=== PATIENT | male | born 1940 | race Caucasian/White ===

== ENCOUNTER 2017-03-27 13:42 | Emergency (ER) | payer MEDICARE, MEDICAID ==
[~2017-03-27] VITALS: Ht 182.9 cm; Wt 86.0 kg
[2017-03-27 15:14] LABS: BASOPHILS % (AUTO) 0.5 % (0.0-2.0); HEMATOCRIT 50.2 % (41-53); HEMOGLOBIN 16.9 g/dL (13.5-17.5); LYMPHOCYTES # (AUTO) 1.5 K/uL (1.0-4.8); LYMPHOCYTES % (AUTO) 18.3 % (22.0-44.0); MEAN CORPUSCULAR HEMOGLOBIN 31.7 pg (26.0-34.0); MEAN CORPUSCULAR HGB CONC 33.6 G/dL (31.0-37.0); MEAN CORPUSCULAR VOLUME 94 fL (80-100); MONOCYTES # (AUTO) 0.6 K/uL (0.1-1.0); MONOCYTES % (AUTO) 6.9 % (2.0-9.0); NEUTROPHILS % (AUTO) 71.3 % (40.0-70.0); PLATELET COUNT (AUTO) 140 K/uL (150-450); RED BLOOD CELL COUNT(AUTO) 5.32 MIL/uL (4.50-5.90); RED CELL DISTRIBUTION WIDTH 13.3 % (11.5-14.5); WHITE BLOOD COUNT (AUTO) 8.4 K/uL (4.5-11.0)
[2017-03-27 15:19] LABS: ANION GAP 6 mmol/L (8-16); CALCIUM, TOTAL 9.1 mg/dL (8.8-10.5); CARBON DIOXIDE 31 mmol/L (22-29); CHLORIDE 107 mmol/L (98-107); CREATININE 1.23 mg/dL (0.60-1.30); GLOMERULAR FILTR. RATE CALC 58 mL/min (>60); POTASSIUM 4.2 mmol/L (3.5-5.1); SODIUM SERUM 144 mmol/L (136-145); UREA NITROGEN, BLOOD 29 mg/dL (7-18)
[2017-03-27 15:26] LABS: ALANINE AMINOTRANSFERASE 21 U/L (12-78); ALBUMIN 3.4 g/dL (3.4-5.0); ASPARTATE AMINOTRANSFERASE 10 U/L (15-37); BILIRUBIN,TOTAL 0.4 mg/dL (0.1-1.0); TOTAL PROTEIN, SERUM 6.6 g/dL (6.4-8.2)
[2017-03-27 15:45] LABS: B-TYPE NATRIURETIC PEPTIDE < 5 pg/mL (0-100)
[2017-03-27] MEDS ORDERED: DiphenhydrAMINE HCL 50 MG/ML VIAL IM ONE (16:00)
[2017-03-27] MEDS ORDERED: LORazepam 2 MG/ML VIAL IM ONE (16:00)
[2017-03-27] MEDS ORDERED: HALOPERIDOL LACTATE 5 MG/ML VIAL IM ONE (16:00)
[2017-03-27 17:58] LABS: APPEARANCE,URINE CLEAR (CLEAR); GLUCOSE, URINE (UA) NEGATIVE (NEGATIVE); KETONES,URINE NEGATIVE (NEGATIVE); LEUKOCYTE ESTERASE ,URINE NEGATIVE (NEGATIVE); OCCULT BLOOD,URINE NEGATIVE (NEGATIVE); PH,URINE 5.5 (5.0-8.0); PROTEIN,URINE NEGATIVE (NEGATIVE)
[2017-03-27 18:00] LABS: ADD UA MICROSCOPIC NO
[2017-03-27 18:50] VITALS: BP 140/90
== END 2017-03-27 19:10 | disposition home or self-care (01) ==
LOC: EMS 13:45
DX: R42 Dizziness and giddiness (principal); R53.1 Weakness; F03.90 Unspecified dementia, unspecified severity, without behavioral disturbance, psychotic disturbance, mood disturbance, and anxiety
CPT/HCPCS: 93005; 99285

== ENCOUNTER 2017-04-20 10:01 | Emergency (ER) | payer MEDICARE, OTHER ==
[~2017-04-20] VITALS: Ht 185.4 cm; Wt 79.5 kg
[2017-04-20] MEDS ORDERED: METO-323 PO (10:26)
[2017-04-20] MEDS ORDERED: SIMV5TAB6 PO (10:26)
[2017-04-20] MEDS ORDERED: LOSA25TA21 PO (10:26)
[2017-04-20] MEDS ORDERED: DOCU100C19 PO (10:26)
[2017-04-20] MEDS ORDERED: DONE5TAB PO (10:26)
[2017-04-20] MEDS ORDERED: TRAZ-144 PO (10:26)
[2017-04-20] MEDS ORDERED: MEMA5 PO (10:26)
[2017-04-20] MEDS ORDERED: DIVA125T PO (10:26)
[2017-04-20] MEDS ORDERED: ALPR0.5T8 PO (10:26)
[2017-04-20 10:30] LABS: BASOPHILS # (AUTO) 0.03 K/uL (0.00-0.20); BASOPHILS % (AUTO) 0.3 % (0.0-2.0); EOSINOPHILS # (AUTO) 0.18 K/uL (0.00-0.70); EOSINOPHILS % (AUTO) 2.03 % (1.0-6.0); HEMATOCRIT 45.1 % (41-53); HEMOGLOBIN 15.3 g/dL (13.5-17.5); LYMPHOCYTES # (AUTO) 1.2 K/uL (1.0-4.8); LYMPHOCYTES % (AUTO) 14.2 % (22.0-44.0); MEAN CORPUSCULAR HEMOGLOBIN 32.1 pg (26.0-34.0); MEAN CORPUSCULAR VOLUME 94 fL (80-100); MONOCYTES # (AUTO) 0.5 K/uL (0.1-1.0); MONOCYTES % (AUTO) 5.3 % (2.0-9.0); NEUTROPHILS # (AUTO) 6.8 K/uL (1.8-7.7); NEUTROPHILS % (AUTO) 78.2 % (40.0-70.0); PLATELET COUNT (AUTO) 114 K/uL (150-450); RED BLOOD CELL COUNT(AUTO) 4.78 MIL/uL (4.50-5.90); RED CELL DISTRIBUTION WIDTH 12.9 % (11.5-14.5); WHITE BLOOD COUNT (AUTO) 8.7 K/uL (4.5-11.0)
[2017-04-20 10:41] LABS: ANION GAP 6 mmol/L (8-16); CALCIUM, TOTAL 8.6 mg/dL (8.8-10.5); CARBON DIOXIDE 29 mmol/L (22-29); CHLORIDE 109 mmol/L (98-107); CREATININE 1.02 mg/dL (0.60-1.30); GLOMERULAR FILTR. RATE CALC > 60 mL/min (>60); INR 1.1 (0.9-1.1); POTASSIUM 4.1 mmol/L (3.5-5.1); PROTHROMBIN TIME 11.2 SEC (9.4-11.6); SODIUM SERUM 144 mmol/L (136-145); UREA NITROGEN, BLOOD 12 mg/dL (7-18)
[2017-04-20 10:47] LABS: ALANINE AMINOTRANSFERASE 21 U/L (12-78); ALBUMIN 2.7 g/dL (3.4-5.0); ASPARTATE AMINOTRANSFERASE 11 U/L (15-37); BILIRUBIN,TOTAL 0.5 mg/dL (0.1-1.0); CREATINE KINASE, TOTAL 26 U/L (39-308); TOTAL PROTEIN, SERUM 5.5 g/dL (6.4-8.2)
[2017-04-20 13:19] LABS: APPEARANCE,URINE CLEAR (CLEAR); GLUCOSE, URINE (UA) NEGATIVE (NEGATIVE); KETONES,URINE NEGATIVE (NEGATIVE); LEUKOCYTE ESTERASE ,URINE NEGATIVE (NEGATIVE); OCCULT BLOOD,URINE NEGATIVE (NEGATIVE); PH,URINE 6.5 (5.0-8.0); PROTEIN,URINE NEGATIVE (NEGATIVE)
[2017-04-20 13:20] LABS: ADD UA MICROSCOPIC NO
[2017-04-20 14:06] VITALS: BP 135/87
== END 2017-04-20 14:16 | disposition home or self-care (01) ==
LOC: EMS 10:04
DX: R07.9 Chest pain, unspecified (principal); R41.82 Altered mental status, unspecified; I10 Essential (primary) hypertension; E78.00 Pure hypercholesterolemia, unspecified
CPT/HCPCS: 70450; 93005; 99285

== ENCOUNTER 2017-05-02 14:42 | Emergency (ER) | payer MEDICARE, OTHER ==
[~2017-05-02] VITALS: Ht 180.3 cm; Wt 90.9 kg
[~2017-05-02 14:42] MED LIST: ALPR0.5T8 PO; DIVA125T PO; DOCU100C19 PO; DONE5TAB PO; LOSA25TA21 PO; MEMA5 PO; METO-323 PO; SIMV5TAB6 PO; TRAZ-144 PO
[2017-05-02 14:56] VITALS: BP 112/73
[2017-05-06] MEDS ORDERED: METO-325 PO (13:53)
[2017-05-06] MEDS ORDERED: MEMA10TA11 PO (13:53)
[2017-05-06] MEDS ORDERED: OLAN5Z PO (13:53)
== END 2017-05-02 15:49 | disposition home or self-care (01) ==
LOC: EMS 14:43
DX: S60.445A External constriction of left ring finger, initial encounter (principal); I10 Essential (primary) hypertension; E78.00 Pure hypercholesterolemia, unspecified; F03.90 Unspecified dementia, unspecified severity, without behavioral disturbance, psychotic disturbance, mood disturbance, and anxiety; W49.04XA Ring or other jewelry causing external constriction, initial encounter; Y93.89 Activity, other specified; Y92.89 Other specified places as the place of occurrence of the external cause; Y99.9 Unspecified external cause status
CPT/HCPCS: 99283

== ENCOUNTER 2017-06-18 16:20 | Inpatient (IN) | payer MEDICARE, OTHER ==
[~2017-06-18] VITALS: Ht 182.9 cm; Wt 70.4 kg
[~2017-06-18 16:20] MED LIST changes: -ALPR0.5T8 PO; -DIVA125T PO; -DOCU100C19 PO; -DONE5TAB PO; +DONE5TAB5 PO; +MEMA10TA11 PO; -MEMA5 PO; -METO-323 PO; +METO-558 PO; +OLAN5TAB40 PO; -TRAZ-144 PO
[2017-06-18 17:13] LABS: BASOPHILS % (AUTO) 0.1 % (0.0-2.0); HEMATOCRIT 47.9 % (41-53); HEMOGLOBIN 16.2 g/dL (13.5-17.5); LYMPHOCYTES # (AUTO) 1.8 K/uL (1.0-4.8); LYMPHOCYTES % (AUTO) 14.7 % (22.0-44.0); MEAN CORPUSCULAR HEMOGLOBIN 31.8 pg (26.0-34.0); MEAN CORPUSCULAR HGB CONC 33.7 G/dL (31.0-37.0); MEAN CORPUSCULAR VOLUME 94 fL (80-100); MONOCYTES # (AUTO) 0.7 K/uL (0.1-1.0); MONOCYTES % (AUTO) 5.9 % (2.0-9.0); NEUTROPHILS # (AUTO) 9.3 K/uL (1.8-7.7); NEUTROPHILS % (AUTO) 77.3 % (40.0-70.0); PLATELET COUNT (AUTO) 201 K/uL (150-450); RED BLOOD CELL COUNT(AUTO) 5.09 MIL/uL (4.50-5.90); RED CELL DISTRIBUTION WIDTH 13.1 % (11.5-14.5)
[2017-06-18 17:14] LABS: ANION GAP 7 mmol/L (8-16); CALCIUM, TOTAL 9.2 mg/dL (8.8-10.5); CARBON DIOXIDE 28 mmol/L (22-29); CHLORIDE 106 mmol/L (98-107); CREATININE 0.92 mg/dL (0.60-1.30); GLOMERULAR FILTR. RATE CALC > 60 mL/min (>60); POTASSIUM 3.9 mmol/L (3.5-5.1); SODIUM SERUM 141 mmol/L (136-145); UREA NITROGEN, BLOOD 18 mg/dL (7-18)
[2017-06-18 17:20] LABS: ALANINE AMINOTRANSFERASE 17 U/L (12-78); ALBUMIN 3.5 g/dL (3.4-5.0); ASPARTATE AMINOTRANSFERASE 9 U/L (15-37); BILIRUBIN,TOTAL 0.3 mg/dL (0.1-1.0); CREATINE KINASE, TOTAL 35 U/L (39-308); TOTAL PROTEIN, SERUM 6.9 g/dL (6.4-8.2)
[2017-06-18 17:21] LABS: PROTHROMBIN TIME 10.7 SEC (9.4-11.6)
[2017-06-18 17:39] LABS: B-TYPE NATRIURETIC PEPTIDE 30 pg/mL (0-100)
[2017-06-18] MEDS ORDERED: SODIUM CHLORIDE 0.9% 100 ML ONE (17:51)
[2017-06-18] MEDS ORDERED: IOVERSOL 350 MG/ML 100 ML VIAL ONE (17:51)
[2017-06-18] MEDS ORDERED: LORazepam 1 MG TABLET PO ONE (20:00)
[2017-06-18] MEDS ORDERED: NITROGLYCERIN 2% (1 GM=INCH) PACKET TP ONE (20:15)
[2017-06-18] MEDS ORDERED: ASPIRIN 81 MG CHEWABLE TABLET PO ONE (20:15)
[2017-06-18] MEDS ORDERED: ACETAMINOPHEN 325 MG TABLET PO PRN (21:00)
[2017-06-18] MEDS ORDERED: ONDANSETRON HCL 4 MG/2 ML VIAL IVP PRN (21:00)
[2017-06-18] MEDS ORDERED: 0.9% SODIUM CHLORIDE 10 ML SYRINGE IVP PRN (21:00)
[2017-06-18 21:29] VITALS: BP 140/90
[2017-06-18 23:46] VITALS: BP 147/84
[2017-06-19 04:48] VITALS: BP 134/81
[2017-06-19 06:54] LABS: BASOPHILS % (AUTO) 0.3 % (0.0-2.0); EOSINOPHILS % (AUTO) 2.3 % (1.0-6.0); HEMATOCRIT 45.3 % (41-53); HEMOGLOBIN 15.2 g/dL (13.5-17.5); LYMPHOCYTES # (AUTO) 1.9 K/uL (1.0-4.8); LYMPHOCYTES % (AUTO) 16.6 % (22.0-44.0); MEAN CORPUSCULAR HEMOGLOBIN 31.9 pg (26.0-34.0); MEAN CORPUSCULAR HGB CONC 33.4 G/dL (31.0-37.0); MEAN CORPUSCULAR VOLUME 95 fL (80-100); MONOCYTES # (AUTO) 0.7 K/uL (0.1-1.0); MONOCYTES % (AUTO) 6.5 % (2.0-9.0); NEUTROPHILS # (AUTO) 8.4 K/uL (1.8-7.7); NEUTROPHILS % (AUTO) 74.3 % (40.0-70.0); PLATELET COUNT (AUTO) 179 K/uL (150-450); RED BLOOD CELL COUNT(AUTO) 4.76 MIL/uL (4.50-5.90); RED CELL DISTRIBUTION WIDTH 13.4 % (11.5-14.5); WHITE BLOOD COUNT (AUTO) 11.3 K/uL (4.5-11.0)
[2017-06-19 06:59] LABS: ALANINE AMINOTRANSFERASE 18 U/L (12-78); ALBUMIN 3.2 g/dL (3.4-5.0); ANION GAP 8 mmol/L (8-16); ASPARTATE AMINOTRANSFERASE 9 U/L (15-37); BILIRUBIN,TOTAL 0.4 mg/dL (0.1-1.0); CALCIUM, TOTAL 8.4 mg/dL (8.8-10.5); CARBON DIOXIDE 30 mmol/L (22-29); CHLORIDE 105 mmol/L (98-107); CREATININE 0.91 mg/dL (0.60-1.30); GLOMERULAR FILTR. RATE CALC > 60 mL/min (>60); SODIUM SERUM 143 mmol/L (136-145); TOTAL PROTEIN, SERUM 6.1 g/dL (6.4-8.2); UREA NITROGEN, BLOOD 17 mg/dL (7-18)
[2017-06-19 07:20] VITALS: BP 116/57
[2017-06-19] MEDS: LOSARTAN POTASSIUM 25 MG TABLET PO SCH ×2 (08:00→19:59)
[2017-06-19] MEDS: OLANZapine 5 MG TABLET PO SCH ×2 (08:01→19:59)
[2017-06-19] MEDS: DONEPEZIL HCL 5 MG TABLET PO SCH (08:01)
[2017-06-19] MEDS: MEMANTINE HCL 5 MG TABLET PO SCH ×2 (08:01→19:59)
[2017-06-19] MEDS: METOPROLOL SUCCINATE 25 MG ER TABLET PO SCH ×2 (08:05→19:59)
[2017-06-19] MEDS: ASPIRIN 81 MG EC TABLET PO SCH (08:08)
[2017-06-19] MEDS ORDERED: SIMVASTATIN 10 MG TABLET PO SCH (09:00)
[2017-06-19] MEDS: SIMVASTATIN 20 MG TABLET PO SCH (10:59)
[2017-06-19] MEDS: CLOPIDOGREL BISULFATE 75 MG TABLET PO SCH (10:59)
[2017-06-19 11:01] VITALS: BP 113/57
[2017-06-19 15:26] VITALS: BP 121/76
[2017-06-19] MEDS: PANTOPRAZOLE SODIUM 40 MG/VIAL IVP SCH (16:39)
[2017-06-19 19:38] VITALS: BP 138/72
[2017-06-19 23:54] VITALS: BP 107/67
[2017-06-20] VITALS (7 sets, daily range): BP systolic 116–152; BP diastolic 63–103
[2017-06-20 06:53] LABS: ALANINE AMINOTRANSFERASE 14 U/L (12-78); ALBUMIN 3.1 g/dL (3.4-5.0); ANION GAP 7 mmol/L (8-16); ASPARTATE AMINOTRANSFERASE 10 U/L (15-37); BILIRUBIN,TOTAL 0.4 mg/dL (0.1-1.0); CALCIUM, TOTAL 8.6 mg/dL (8.8-10.5); CARBON DIOXIDE 30 mmol/L (22-29); CHLORIDE 106 mmol/L (98-107); CREATININE 0.98 mg/dL (0.60-1.30); GLOMERULAR FILTR. RATE CALC > 60 mL/min (>60); SODIUM SERUM 143 mmol/L (136-145); TOTAL PROTEIN, SERUM 6.3 g/dL (6.4-8.2)
[2017-06-20 07:03] LABS: UREA NITROGEN, BLOOD 20 mg/dL (7-18)
[2017-06-20 07:04] LABS: BASOPHILS # (AUTO) 0.03 K/uL (0.00-0.20); BASOPHILS % (AUTO) 0.4 % (0.0-2.0); EOSINOPHILS # (AUTO) 0.37 K/uL (0.00-0.70); EOSINOPHILS % (AUTO) 4.43 % (1.0-6.0); HEMATOCRIT 45.5 % (41-53); HEMOGLOBIN 15.3 g/dL (13.5-17.5); LYMPHOCYTES # (AUTO) 1.7 K/uL (1.0-4.8); LYMPHOCYTES % (AUTO) 20.8 % (22.0-44.0); MEAN CORPUSCULAR HGB CONC 33.6 G/dL (31.0-37.0); MEAN CORPUSCULAR VOLUME 95 fL (80-100); MONOCYTES # (AUTO) 0.6 K/uL (0.1-1.0); MONOCYTES % (AUTO) 7.7 % (2.0-9.0); NEUTROPHILS # (AUTO) 5.6 K/uL (1.8-7.7); NEUTROPHILS % (AUTO) 66.7 % (40.0-70.0); PLATELET COUNT (AUTO) 147 K/uL (150-450); RED BLOOD CELL COUNT(AUTO) 4.78 MIL/uL (4.50-5.90); RED CELL DISTRIBUTION WIDTH 13.3 % (11.5-14.5); WHITE BLOOD COUNT (AUTO) 8.4 K/uL (4.5-11.0)
[2017-06-20] MEDS: METOPROLOL SUCCINATE 25 MG ER TABLET PO SCH ×2 (08:05→20:37)
[2017-06-20] MEDS: PANTOPRAZOLE SODIUM 40 MG/VIAL IVP SCH (08:05)
[2017-06-20] MEDS: LOSARTAN POTASSIUM 25 MG TABLET PO SCH ×2 (08:05→20:37)
[2017-06-20] MEDS: CLOPIDOGREL BISULFATE 75 MG TABLET PO SCH (08:05)
[2017-06-20] MEDS: MEMANTINE HCL 5 MG TABLET PO SCH ×2 (08:05→20:36)
[2017-06-20] MEDS: ASPIRIN 81 MG EC TABLET PO SCH (08:05)
[2017-06-20] MEDS: DONEPEZIL HCL 5 MG TABLET PO SCH (08:05)
[2017-06-20] MEDS: OLANZapine 5 MG TABLET PO SCH ×2 (08:06→20:37)
[2017-06-20] MEDS: SIMVASTATIN 20 MG TABLET PO SCH (08:06)
[2017-06-20] MEDS ORDERED: HALOPERIDOL LACTATE 5 MG/ML VIAL ONE (13:26)
[2017-06-20] MEDS ORDERED: HALOPERIDOL LACTATE 5 MG/ML VIAL IM PRN (13:30)
[2017-06-21 05:04] VITALS: BP 156/92
[2017-06-21] MEDS: DONEPEZIL HCL 5 MG TABLET PO SCH (08:00)
[2017-06-21] MEDS: SIMVASTATIN 20 MG TABLET PO SCH (08:00)
[2017-06-21] MEDS: CLOPIDOGREL BISULFATE 75 MG TABLET PO SCH (08:01)
[2017-06-21] MEDS: LOSARTAN POTASSIUM 25 MG TABLET PO SCH ×2 (08:01→20:37)
[2017-06-21] MEDS: MEMANTINE HCL 5 MG TABLET PO SCH ×2 (08:01→20:37)
[2017-06-21] MEDS: ASPIRIN 81 MG EC TABLET PO SCH (08:01)
[2017-06-21] MEDS: METOPROLOL SUCCINATE 25 MG ER TABLET PO SCH ×2 (08:01→20:37)
[2017-06-21] MEDS: OLANZapine 5 MG TABLET PO SCH ×2 (08:01→20:37)
[2017-06-21 08:18] VITALS: BP 179/78
[2017-06-21] MEDS ORDERED: PANTOPRAZOLE SODIUM 40 MG DR TABLET PO SCH (09:00)
[2017-06-21 11:30] VITALS: BP 141/85
[2017-06-21 16:27] VITALS: BP 139/96
[2017-06-21 19:45] VITALS: BP 143/88
[2017-06-21 23:20] VITALS: BP 128/78
[2017-06-22 04:58] VITALS: BP 129/80
[2017-06-22 08:17] VITALS: BP 131/83
== END 2017-06-22 08:20 | disposition home or self-care (01) | DRG 206 ==
LOC: EMS 16:23 → 5N 20:35 → 5S 06-22 02:00
PROVIDERS: ADMIT Internal Medicine Geriatric Medicine; ATTEND Internal Medicine Geriatric Medicine
DX: M94.0 Chondrocostal junction syndrome [Tietze] (principal); F03.90 Unspecified dementia, unspecified severity, without behavioral disturbance, psychotic disturbance, mood disturbance, and anxiety; I70.1 Atherosclerosis of renal artery; I45.10 Unspecified right bundle-branch block; I25.10 Atherosclerotic heart disease of native coronary artery without angina pectoris; K21.9 Gastro-esophageal reflux disease without esophagitis; D72.829 Elevated white blood cell count, unspecified; E78.5 Hyperlipidemia, unspecified; R53.1 Weakness; I10 Essential (primary) hypertension; Z79.899 Other long term (current) drug therapy
CPT/HCPCS: 71260; 72193; 74160; 83735; 93005; 93306; 96372; 96374; 99285; C9113; J1630; J7050